=== PATIENT | female | born 1970 | race Caucasian/White ===

== ENCOUNTER → 2020-08-01 | Outpatient (CLI) | payer OTHER ==
[2020-08-01 13:49] VITALS: BP 139/87; PULSE 73; RESP 18; TEMP 97.7
--- NOTE | 2020-08-01 14:24 | P.HPBAR ---
Bariatric H&P - History & Physicial H&P Date: 08/01/20 History & Physicial: Visit/CC: transfer of care Patient initial contact: Initial weight: Initial weight in pounds: Height: 5 ft 4 in Initial BMI: Last weight: Current weight: 116.573 kg Current weight in pounds: Current BMI: [place] body weight (based on NIH guidelines): Excess body weight loss: The patient is a 50 year-old F who presents for Bariatric Assessment. She comes in after micropouch 309 pounds in 2003. She had opened gastric bypass. She had no complications following surgery. Lowest was 149 pounds up to 160 pounds. She presents as a transfer of care. She was 185 pounds in 8 years. She gained 25 pounds after stop smoking. She was smoking prior and after her surgery. She stopped smoking 4 years ago. She is now 257 pounds. She was at [facility] for revision of her surgery. She had an upper scope. She had a stomaphyx from her procedure. She reports occasional stomach or belly pain. ASSESSMENT: 1. Epigastric pain 2. Dysphagia PLAN: 1. EGD 2. Food journal 3. Labs. Past Medical History Past Medical History: Musculoskeletal Disorder Additional Past Medical History / Comment(s): MS History of Any Multi-Drug Resistant Organisms: None Reported Past Surgical History: Adenoidectomy, Bariatric Surgery, Section, Hysterectomy, Tonsillectomy Additional Past Surgical History / Comment(s): micro pouch 2003; csection X1 Past Anesthesia/Blood Transfusion Reactions: No Reported Reaction Smoking Status: Former smoker Past Alcohol Use History: Rare Past Drug Use History: None Reported Surgical - Exam Vital Signs Temp Pulse Resp BP 97.7 F 73 18 139/87 08/01/20 13:38 08/01/20 13:38 08/01/20 13:38 08/01/20 13:38 Bariatric Checklist Checklist: Plan: Checklist: EGD: 1. Hiatal hernia: 2. H. Pylori: HgbA1c: Vitamin D: Smoking: Former smoker Primary care physician referral: Dr. Wang Psychiatry clearance: Cardiology clearance: Sleep study: Diet journal: VTE risk score: VTE risk level: Rehab needs at discharge:
[2020-08-01 15:16] LABS: HCT 34.3 % (34.0-46.0); HGB 10.8 gm/dL (11.4-16.0); Hypochromasia Slight; MCH 25.8 pg (25.0-35.0); MCHC 31.6 g/dL (31.0-37.0); MCV 81.7 fL (80.0-100.0); Mean Platelet Volume 9.7; Platelet Count 230 k/uL (150-450); RDW 15.1 % (11.5-15.5); WBC 6.7 k/uL (3.8-10.6)
[2020-08-02 01:40] LABS: Hemoglobin A1C 5.9 % (4.0-6.0)
[2020-08-02 01:44] LABS: Ferritin 6.3 ng/mL (10.0-291.0); Folate, Serum 12.7 ng/mL
[2020-08-02 01:45] LABS: % Iron Saturation 4.79 (12.00-45.00); African American GFR (CKD) 117.9 (60.0-200.0); Albumin 4.5 g/dL (3.80-4.90); Albumin/Globulin Ratio 2.25 (1.60-3.17); Anion Gap 9.1 mmol/L (4.00-12.00); BUN/Creat Ratio 25.71 Ratio (12.00-20.00); Calcium 8.8 mg/dL (8.7-10.3); Carbon Dioxide 21.9 mmol/L (21.6-31.8); Chol/HDL Ratio 3.58; LDL Cholesterol,Calculated 113.4 mg/dL (0.0-131.0); Magnesium 1.9 mg/dL (1.5-2.4); Non-African American GFR(CKD) 101.7 (60.0-200.0); Phosphorus 3.9 mg/dL (2.4-5.1); Potassium 4.5 mmol/L (3.5-5.5); Total Bilirubin 0.3 mg/dL (0.3-1.2); Total Protein 6.5 g/dL (6.2-8.2); VLDL Calculation 20.6 mg/dL (5.00-40.00)
[2020-08-02 04:04] LABS: INR 0.98 (0.90-1.11); Partial Thromboplastin Time 24.9 sec (23.5-31.0); Prothrombin Time 10.6 sec (9.9-11.9)
== END | disposition home or self-care (01) ==
LOC: BARWHC3 13:22
PROVIDERS: ATTEND Surgery Plastic and Reconstructive Surgery
DX: R10.13 Epigastric pain (principal); R13.10 Dysphagia, unspecified; Z98.84 Bariatric surgery status; Z90.710 Acquired absence of both cervix and uterus; Z87.891 Personal history of nicotine dependence
CPT/HCPCS: 80053; 80061; 82306; 82525; 82607; 82728; 82746; 83036; 83540; 83550; 83735; 83970; 84100; 84134; 84255; 84425; 84443; 84590; 84630; 85027; 85610; 85730; 99211

== ENCOUNTER 2020-09-19 08:58 | Day surgery (SDC) | payer OTHER ==
[2020-09-17 08:18] VITALS: BMI 41.7
[~2020-09-19 08:58] MED LIST: LACTATED RINGERS 1,000 ML IV SCH; LIDOCAINE 1% (10MG/ML) FOR IV START INTRADERMA PRN
[2020-09-19 09:26] VITALS: RESP 16; TEMP 97.3
--- NOTE | 2020-09-19 09:40 | P.GSHP ---
History of Present Illness H&P Date: 09/19/20 CHIEF COMPLAINT: GERD HISTORY OF PRESENT ILLNESS: The patient is a 50-year-old female who presents reports gastroesophageal reflux disease. Upper endoscopy was offered for further evaluation and management. PAST MEDICAL HISTORY: Please see list. PAST SURGICAL HISTORY: Please see list. MEDICATIONS: Please see list. ALLERGIES: Please see list. SOCIAL HISTORY: No illicit drug use FAMILY HISTORY: No reports of Crohn disease or ulcerative colitis. REVIEW OF ORGAN SYSTEMS: CONSTITUTIONAL: No reports of fevers or chills. GI: Denies any blood in stools or constipation. PHYSICAL EXAM: VITAL SIGNS: Stable GENERAL: Well-developed and pleasant in no acute distress. HEENT: No scleral icterus. Extraocular movements grossly intact. Moist buccal mucosa. NECK: Supple without lymphadenopathy. CHEST: Unlabored respirations. Equal bilateral excursions. CARDIOVASCULAR: Regular rate and rhythm. Distal 2+ pulses. ABDOMEN: Soft, nondistended. MUSCULOSKELETAL: No clubbing, cyanosis, or edema. ASSESSMENT: 1. Gastroesophageal reflux disease PLAN: 1. Recommend proceeding with an upper endoscopy Past Medical History Past Medical History: Musculoskeletal Disorder Additional Past Medical History / Comment(s): MS, MIGRAINE HEADACHE History of Any Multi-Drug Resistant Organisms: None Reported Past Surgical History: Adenoidectomy, Bariatric Surgery, Section, Hysterectomy, Tonsillectomy Additional Past Surgical History / Comment(s): micro pouch 2004; csection X1 Past Anesthesia/Blood Transfusion Reactions: No Reported Reaction Smoking Status: Former smoker - Past Family History Father Family Medical History: Cancer Medications and Allergies Home Medications Medication Instructions Recorded Confirmed Type Ibuprofen [Motrin] 600 mg PO Q6HR PRN #30 tab 11/08/15 09/19/20 Rx Calcium Citrate 1,200 mg PO DAILY 08/08/20 09/19/20 History Ergocalciferol [Vitamin D2 50,000 unit PO TH 08/08/20 09/19/20 History (DRISDOL)] Vitamin A 10,000 unit PO DAILY 08/08/20 09/19/20 History Zinc 50 mg PO DAILY 08/08/20 09/19/20 History Acetaminophen Tab [Tylenol] 650 mg PO Q4H PRN 09/14/20 09/19/20 History Multivitamins, Thera [Multivitamin 1 tab PO DAILY 09/14/20 09/19/20 History (formulary)] Allergies Allergy/AdvReac Type Severity Reaction Status Date / Time Penicillins Allergy Swelling. Verified 09/19/20 09:20 RASH Surgical - Exam Vital Signs Temp Pulse Resp BP Pulse Ox 97.3 F L 62 16 113/57 98 09/19/20 09:20 09/19/20 09:20 09/19/20 09:20 09/19/20 09:20 09/19/20 09:20
[2020-09-19] MEDS ORDERED: LIDOCAINE 1% INJ 10MG/ML (20 ML MDV) ONE (09:54)
[2020-09-19] MEDS ORDERED: PROPOFOL 10 MG/ML 20 ML VIAL IV ONE (09:54)
[2020-09-19] MEDS ORDERED: GLYCOPYRROLATE 0.2 MG/ML 2 ML VIAL ONE (09:54)
--- NOTE | 2020-09-19 10:14 | P.PCN ---
Date of Procedure: 09/19/20 Description of Procedure: PREOPERATIVE DIAGNOSES: 1. Epigastric abdominal pain. 2. Nausea and vomiting. 3. History of gastric bypass. POSTOPERATIVE DIAGNOSES: 1. Epigastric abdominal pain. 2. Nausea and vomiting. 3. History of gastric bypass. 4. Gastric ulcer PROCEDURE PERFORMED: Esophagogastrojejunoscopy. SURGEON: Edita Pierre MD ANESTHESIA: MAC. INDICATIONS: The patient is a 50-year-old female with prior history of Hasmukh-en-Y gastric bypass at outside institution with stoma fix. In the last several weeks, she has epigastric abdominal pain. With her history of Hasmukh-en-Y gastric bypass, upper endoscopy was offered for further evaluation and management. DESCRIPTION: Patient was brought to the endoscopy suite and laid in the left lateral decubitus position. After adequate IV sedation, a bite block was placed. An Olympus gastroscope was passed along the posterior oropharynx down to the distal esophagus where the squamocolumnar junction was found at approximately 38 cm from the incisors. The anastomosis was found at 41 cm, consistent with approximately 3 cm gastric pouch. The scope was advanced 60 cm from the incisors. Foreign body was found at ulcer site. Active gastrojejunal ulcerations were encountered. The GI tract was desufflated. The patient tolerated the procedure well. FINDINGS: 1. Acute gastrojejunal ulceration. 2. Foreign body found along the anastomosis from stoma fix procedure PLAN: 1. Discontinue all ibuprofen, Excedrin, aspirin, Motrin, and nonsteroidals anti-inflammatory drugs 2. Start omeprazole 40 mg daily for 2 weeks for ulcers Plan - Discharge Summary Discharge Rx Participant: No New Discharge Prescriptions: New Omeprazole [PriLOSEC] 40 mg PO DAILY #14 cap Continue Vitamin A 10,000 unit PO DAILY Calcium Citrate 1,200 mg PO DAILY Zinc 50 mg PO DAILY Ergocalciferol [Vitamin D2 (DRISDOL)] 50,000 unit PO TH Multivitamins, Thera [Multivitamin (formulary)] 1 tab PO DAILY Acetaminophen Tab [Tylenol] 650 mg PO Q4H PRN PRN Reason: Pain Discontinued Ibuprofen [Motrin] 600 mg PO Q6HR PRN #30 tab PRN Reason: Mild Pain Discharge Medication List Calcium Citrate 1,200 mg PO DAILY 08/08/20 [History] Ergocalciferol [Vitamin D2 (DRISDOL)] 50,000 unit PO TH 08/08/20 [History] Vitamin A 10,000 unit PO DAILY 08/08/20 [History] Zinc 50 mg PO DAILY 08/08/20 [History] Acetaminophen Tab [Tylenol] 650 mg PO Q4H PRN 09/14/20 [History] Multivitamins, Thera [Multivitamin (formulary)] 1 tab PO DAILY 09/14/20 [History] Omeprazole [PriLOSEC] 40 mg PO DAILY #14 cap 09/19/20 [Rx] Follow up Appointment(s)/Referral(s): Edita Pierre MD [STAFF PHYSICIAN] - 1 Week Patient Instructions/Handouts: Peptic Ulcer (DC), Diet for Stomach Ulcers and Gastritis (ED) Activity/Diet/Wound Care/Special Instructions: Stop all NSAIDs, ibuprofen, Motrin, Aleve, Excedrin, aspirin for ulcers Discharge Disposition: HOME SELF-CARE
[2020-09-19 10:37] VITALS: BP 108/68; PULSE 61
== END 2020-09-19 11:24 | disposition home or self-care (01) ==
LOC: ORWHC2ENDO 08:58
PROVIDERS: ATTEND Surgery Plastic and Reconstructive Surgery
DX: K28.3 Acute gastrojejunal ulcer without hemorrhage or perforation (principal); K21.9 Gastro-esophageal reflux disease without esophagitis; G35 Multiple sclerosis; K08.409 Partial loss of teeth, unspecified cause, unspecified class; Z98.84 Bariatric surgery status; Z88.0 Allergy status to penicillin; Z87.39 Personal history of other diseases of the musculoskeletal system and connective tissue; Z86.69 Personal history of other diseases of the nervous system and sense organs; Z90.89 Acquired absence of other organs; Z98.890 Other specified postprocedural states; Z90.710 Acquired absence of both cervix and uterus; Z87.891 Personal history of nicotine dependence; Z80.9 Family history of malignant neoplasm, unspecified
CPT/HCPCS: 43235; J2001; J2704

== ENCOUNTER → 2020-09-26 | Outpatient (CLI) | payer OTHER ==
[2020-09-26 14:42] VITALS: BP 126/81; PULSE 71; RESP 16; TEMP 98.2; BMI 42.4
--- NOTE | 2020-09-26 15:28 | P.PN ---
Subjective Progress Note Date: 09/26/20 DATE OF SERVICE: 09/26/2020 CHIEF COMPLAINT: Status post gastric bypass HISTORY OF PRESENT ILLNESS: Cristal Bennett is a 50-year-old female who comes with lifelong morbid obesity. She comes in after micropouch with initial weight of 309 pounds in 2003. She is 17 years out. She had an open gastric bypass. She had no complications following surgery. Her lowest was 149 pounds up to 160 pounds. She presents as a transfer of care. She was 185 pounds for 8 years. She gained 25 pounds after stop smoking. She was smoking prior and after her surgery. She had stopped smoking 4 years ago. She is now up to 257 pounds from 1 month ago. She was at [facility] for revision of her surgery. She had an upper scope. She had a stomaphyx from her procedure. She reports stomach and epigastric belly pain. She completed a recent upper endoscopy. She presents for follow up. At height of 5 feet 4 inches, her ideal body weight is 144 pounds. Her highest weight was 309 pounds, BMI 53.2. Her lowest weight was 149 pounds. She comes in 246 pounds from 256 pounds, 1 month ago. She has lost 10 pounds in 1 month. Her lifetime weight loss is 63 pounds. Her lifetime percent excess weight loss is 38%Her body mass index is 42.4. She is 102 pounds overweight. PAST MEDICAL HISTORY: 1. Morbid obesity due to excess calories 2. Body mass index of 53.2 initial 3. Multiple sclerosis PAST SURGICAL HISTORY: 1. Gastric bypass micropouch, 2003 2. section 3. Adenoidecttomy 4. Hysterectomy 5. Tonsillectomy 6. Stomaphyx HOME MEDICATIONS: Home Medications Medication Instructions Recorded Confirmed Calcium Citrate 1,200 mg PO DAILY 08/08/20 09/26/20 Ergocalciferol [Vitamin D2 50,000 unit PO TH 08/08/20 09/26/20 (DRISDOL)] Vitamin A 10,000 unit PO DAILY 08/08/20 09/26/20 Zinc 50 mg PO DAILY 08/08/20 09/26/20 Acetaminophen Tab [Tylenol] 650 mg PO Q4H PRN 09/14/20 09/26/20 Multivitamins, Thera [Multivitamin 1 tab PO DAILY 09/14/20 09/26/20 (formulary)] Previous Rx's Medication Instructions Recorded Omeprazole [PriLOSEC] 40 mg PO DAILY #14 cap 09/19/20 ALLERGIES: Allergies Allergy/AdvReac Type Severity Reaction Status Date / Time Penicillins Allergy Swelling. Verified 09/26/20 14:43 RASH SOCIAL HISTORY: Past tobacco use. FAMILY HISTORY: No family history of ulcerative colitis disease or Crohn's disease. Family history of morbid obesity. No lupus in the family. No reports of stomach or esophageal cancer. REVIEW OF ORGAN SYSTEMS: CONSTITUTIONAL: At height of 5 feet 4 inches, her ideal body weight is 144 pounds. Her highest weight was 309 pounds, BMI 53.2. Her lowest weight was 149 pounds. HEENT: Denies any active troubles with vision or hearing. ENDOCRINE: Denies diabetes. No hypothyroidism. CARDIOVASCULAR: Denies past reports of palpitations or heart attacks or chest pain. RESPIRATORY: Denies daytime somnolence. Denies asthma. GASTROINTESTINAL: Denies any bright red blood per rectum. No diarrhea. No constipation. MUSCULOSKELETAL: Has lower back pain and joint pain. Has osteoarthritis of the knees. NEURO: No headaches. No seizure disorders. PSYCH: Denies depression. No suicidal ideation. RHEUMATOLOGIC: No lupus. No rheumatoid arthritis. HEMATOLOGIC: Denies any abnormal bleeding or bruising. No personal history of DVTs. SKIN: No rash. No skin cancer. PHYSICAL EXAM: VITAL SIGNS: Height 5 foot 4 inches, weight 246 pounds. BMI 42.4 Vital Signs Temp 98.2 F 09/26/20 14:39 Pulse 71 09/26/20 14:39 Resp 16 09/26/20 14:39 BP 126/81 09/26/20 14:39 Pulse Ox GENERAL: Well-developed in no acute distress. HEENT: No scleral icterus. Extraocular movements grossly intact. Hears conversational speech. No nasal drainage. NECK: Supple without lymphadenopathy. CHEST: Nonlabored respirations with equal bilateral excursions. CARDIOVASCULAR: Regular rate and regular rhythm. Distal 2+ pulses. ABDOMEN: Obese, soft, nontender, nondistended. MUSCULOSKELETAL: No clubbing, cyanosis. NEURO: No focal or lateralizing signs. Cranial nerves 2 through 12 grossly within normal limits. PSYCH: Appropriate affect. Alert and oriented to person, place and time. SKIN: Good skin turgor. Well perfused. LABS: Hgb low 10.8, iron is low, pre-albumin is low, vitamin A is low, vitamin B-12 is low, vitamin D is low, Zinc is low EGD FINDINGS: 1. Acute gastrojejunal ulceration. 2. Foreign body found along the anastomosis from stoma fix procedure ASSESSMENT: 1. Morbid obesity due to excess calories 2. Body mass index of 53.2 initial 3. Multiple sclerosis 4. Acute gastrojejunal ulceration. 5. Epigastric pain 6. Dysphagia 7. Iron deficiency anemia 8. Vitamin A deficiency 9. Vitamin B-12 deficiency 10. Vitamin D deficiency 11. Zinc deficiency PLAN: 1. Recommend food diary journal 2. Follow up in 1 month to 2 months Objective - Vital Signs Vital signs: Vital Signs Temp 98.2 F 09/26/20 14:39 Pulse 71 09/26/20 14:39 Resp 16 09/26/20 14:39 BP 126/81 09/26/20 14:39 Pulse Ox Intake & Output 09/25/20 09/26/20 09/26/20 18:59 06:59 18:59 Weight 112.037 kg
== END | disposition home or self-care (01) ==
LOC: BARWHC3 13:57
PROVIDERS: ATTEND Surgery Plastic and Reconstructive Surgery
DX: E66.01 Morbid (severe) obesity due to excess calories (principal); Z68.43 Body mass index [BMI] 50.0-59.9, adult; G35 Multiple sclerosis; K28.9 Gastrojejunal ulcer, unspecified as acute or chronic, without hemorrhage or perforation; R10.13 Epigastric pain; R13.10 Dysphagia, unspecified; D50.9 Iron deficiency anemia, unspecified; E50.9 Vitamin A deficiency, unspecified; E53.8 Deficiency of other specified B group vitamins; E55.9 Vitamin D deficiency, unspecified; E60 Dietary zinc deficiency; Z79.899 Other long term (current) drug therapy; Z90.710 Acquired absence of both cervix and uterus; Z98.890 Other specified postprocedural states
CPT/HCPCS: 99211

== ENCOUNTER → 2020-10-08 | Outpatient (CLI) | payer OTHER ==
--- NOTE | 2020-10-09 11:23 | MM ---
Reason for exam: screening (asymptomatic). Last mammogram was performed 5 years and 1 month ago. History: Family history of breast cancer in paternal grandmother at age 70. Took hormonal contraceptives for 10 years. Physical Findings: A clinical breast exam by your physician is recommended on an annual basis and results should be correlated with mammographic findings. MG Screening Mammo w CAD Bilateral CC and MLO view(s) were taken. Prior study comparison: September 21, 2015, bilateral MG 3d screening mammo w/cad. August 28, 2014, bilateral MG screening mammo w CAD. There are scattered fibroglandular densities. There is chronic nodularity in the left breast. There is no discrete abnormality. ASSESSMENT: Negative, BI-RAD 1 RECOMMENDATION: Routine screening mammogram of both breasts in 1 year.
== END | disposition home or self-care (01) ==
LOC: RADMAMWWP 12:58
PROVIDERS: ATTEND Family Medicine
DX: Z12.31 Encounter for screening mammogram for malignant neoplasm of breast (principal)
CPT/HCPCS: 77067

== ENCOUNTER → 2020-10-25 | Outpatient (CLI) | payer OTHER ==
[2020-10-25 11:43] LABS: Ferritin 41.5 ng/mL (10.0-291.0)
[2020-10-25 11:44] LABS: % Iron Saturation 26.77 (12.00-45.00); African American GFR (CKD) 117.9 (60.0-200.0); Albumin 3.9 g/dL (3.80-4.90); Albumin/Globulin Ratio 1.7 (1.60-3.17); Anion Gap 7.1 mmol/L (4.00-12.00); BUN/Creat Ratio 22.86 Ratio (12.00-20.00); Calcium 9.5 mg/dL (8.7-10.3); Carbon Dioxide 27.9 mmol/L (21.6-31.8); Chol/HDL Ratio 3.4; Globulin 2.3 g/dL (1.6-3.3); LDL Cholesterol,Calculated 92.8 mg/dL (0.0-131.0); Magnesium 1.7 mg/dL (1.5-2.4); Non-African American GFR(CKD) 101.7 (60.0-200.0); Phosphorus 3.3 mg/dL (2.4-5.1); Potassium 4.2 mmol/L (3.5-5.5); Total Bilirubin 0.4 mg/dL (0.3-1.2); Total Protein 6.2 g/dL (6.2-8.2); VLDL Calculation 20.2 mg/dL (5.00-40.00)
[2020-10-25 11:46] LABS: Folate, Serum 14.4 ng/mL
[2020-10-25 13:26] LABS: Hemoglobin A1C 5.3 % (4.0-6.0)
[2020-10-25 18:05] LABS: INR 0.99 (0.90-1.11); Partial Thromboplastin Time 26.7 sec (23.5-31.0); Prothrombin Time 10.8 sec (9.9-11.9)
[2020-10-26 08:31] LABS: RBC 4.34; WBC 5.96
[2020-10-26 08:32] LABS: HCT 40.5; HGB 13.3; MCV 93.3
[2020-10-26 08:34] LABS: MCH 30.6; MCHC 32.8
[2020-10-26 08:35] LABS: Mean Platelet Volume 13.4; Platelet Count 157
== END | disposition home or self-care (01) ==
LOC: LABWHC1 07:54
PROVIDERS: ATTEND Surgery Plastic and Reconstructive Surgery
DX: E89.1 Postprocedural hypoinsulinemia (principal); D50.8 Other iron deficiency anemias; K90.89 Other intestinal malabsorption; E55.9 Vitamin D deficiency, unspecified; K74.1 Hepatic sclerosis; N19 Unspecified kidney failure; K50.90 Crohn's disease, unspecified, without complications
CPT/HCPCS: 36415; 80053; 80061; 82306; 82525; 82607; 82728; 82746; 83036; 83540; 83550; 83735; 83970; 84100; 84134; 84255; 84425; 84443; 84590; 84630; 85027; 85610; 85730

== ENCOUNTER → 2021-11-18 | Outpatient (CLI) | payer OTHER ==
--- NOTE | 2021-11-19 11:46 | MM ---
Reason for exam: screening (asymptomatic). Last mammogram was performed 1 year and 1 month ago. History: Family history of breast cancer in paternal grandmother at age 70. Took hormonal contraceptives for 10 years. Physical Findings: A clinical breast exam by your physician is recommended on an annual basis and results should be correlated with mammographic findings. MG Screening Mammo w CAD Bilateral CC and MLO view(s) were taken. Prior study comparison: October 08, 2020, bilateral MG screening mammo w CAD. September 21, 2015, bilateral MG 3d screening mammo w/cad. The breast tissue is almost entirely fat. There is chronic nodularity in the left breast. There is no discrete abnormality. ASSESSMENT: Benign, BI-RAD 2 RECOMMENDATION: Routine screening mammogram of both breasts in 1 year.
== END | disposition home or self-care (01) ==
LOC: RADMAMWWP 07:03
PROVIDERS: ATTEND Family Medicine
DX: Z12.31 Encounter for screening mammogram for malignant neoplasm of breast (principal); Z80.3 Family history of malignant neoplasm of breast
CPT/HCPCS: 77067

== ENCOUNTER → 2022-09-10 | Outpatient (CLI) | payer OTHER ==
[2022-09-10 14:56] LABS: Basophils # (A) 0.02 X 10*3/uL (0.00-0.10); Basophils % (A) 0.4 %; Eosinophils # (A) 0.09 X 10*3/uL (0.04-0.35); Eosinophils % (A) 1.6 %; HCT 42.4 % (37.2-46.3); HGB 13.4 g/dL (12.0-15.0); Immature Grans, Automated 0.4 %; Lymphocytes # (A) 1.69 X 10*3/uL (0.90-5.00); MCH 31.2 pg (27.0-32.0); MCHC 31.6 g/dL (32.0-37.0); MCV 98.8 fL (80.0-97.0); Monocytes # (A) 0.39 X 10*3/uL (0.20-1.00); Monocytes % (A) 7.1 %; NRBC Per 100 WBC 0 /100 WBCS (0.0-0.0); Neutrophils # (A) 3.25 X 10*3/uL (1.80-7.70); Neutrophils % (A) 59.5 %; Platelet Count 188 X 10*3/uL (140-440); RBC 4.29 X 10*6/uL (4.10-5.20); RDW 12.3 % (11.5-14.5); WBC 5.46 X 10*3/uL (4.50-10.00)
[2022-09-10 16:29] LABS: T4, Free (Free Thyroxine) 1.2 ng/dL (0.800-1.800)
[2022-09-10 16:38] LABS: African American GFR (CKD) 114.7 (60.0-200.0); Albumin 4.3 g/dL (3.8-4.9); Albumin/Globulin Ratio 1.99 (1.60-3.17); Anion Gap 12.8 mmol/L (10.00-18.00); BUN/Creat Ratio 14.83 Ratio (12.00-20.00); Blood Urea Nitrogen 10.5 mg/dL (9.0-27.0); Calcium 8.9 mg/dL (8.7-10.3); Carbon Dioxide 21.7 mmol/L (20.0-27.5); Globulin 2.2 g/dL (1.6-3.3); Potassium 4.6 mmol/L (3.5-5.5); Total Bilirubin 0.3 mg/dL (0.30-1.20); Total Protein 6.4 g/dL (6.2-8.2)
== END | disposition home or self-care (01) ==
LOC: LABWHC1 07:32
PROVIDERS: ATTEND Psychiatry & Neurology Neurology
DX: E55.9 Vitamin D deficiency, unspecified (principal); E53.9 Vitamin B deficiency, unspecified; G35 Multiple sclerosis; R41.3 Other amnesia
CPT/HCPCS: 36415; 80053; 82306; 82607; 84207; 84439; 84443; 84481; 85025

== ENCOUNTER → 2022-12-26 | Outpatient (CLI) | payer OTHER ==
--- NOTE | 2022-12-29 09:32 | MM ---
Reason for Exam: Screening (asymptomatic). Last mammogram was performed 1 year(s) and 1 month(s) ago. Patient History: Menarche at age 14. First Full-Term at age 30. Hysterectomy at age 45. Patient used Hormonal Contraceptives for 10 years. Paternal grandmother had breast cancer, age 70. Risk Values: Marleny 5 year model risk: 1.1%. NCI Lifetime model risk: 9.7%. Prior Study Comparison: 09/21/2015 Bilateral Screening Mammogram, [facility]. 10/08/2020 Bilateral Screening Mammogram, [facility]. 11/18/2021 Bilateral Screening Mammogram, [facility]. Tissue Density: The breast tissue is heterogeneously dense. This may lower the sensitivity of mammography. Findings: Analyzed By CAD. There is no suspicious group of microcalcifications or new suspicious mass in either breast. Stable chronic nodularity within the left breast. Overall Assessment: Benign, BI-RAD 2 Management: Screening Mammogram of both breasts in 1 year. A clinical breast exam by your physician is recommended on an annual basis and results should be correlated with mammographic findings. Electronically signed and approved by: Oseas Medina D.O.
== END | disposition home or self-care (01) ==
LOC: RADMAMWWP 15:59
PROVIDERS: ATTEND Obstetrics & Gynecology
DX: Z12.31 Encounter for screening mammogram for malignant neoplasm of breast (principal); Z80.3 Family history of malignant neoplasm of breast
CPT/HCPCS: 77063; 77067